=== PATIENT | male | born 1990 | race Caucasian/White ===

== ENCOUNTER 2023-05-29 11:17 | Emergency (ER) | payer MEDICAID ==
[~2023-05-29] VITALS: Ht 190.5 cm; Wt 86.2 kg
[2023-05-29 11:17] VITALS: BP_SYST 144; PULSE 114; RESP 19; TEMP 98.1; O2SAT 97
[~2023-05-29 11:17] MED LIST: NORCO5; [UNRECOGNIZED DRUG - CODE]
[2023-05-29] MEDS ORDERED: ACET325T PO (12:24)
[2023-05-29] MEDS ORDERED: CHLO473M5 PO (12:24)
[2023-05-29] MEDS ORDERED: AMOX500C2 PO (12:24)
[2023-05-29] MEDS ORDERED: IBUP-1969 PO (12:24)
[2023-05-29] MEDS ORDERED: KETOROLAC TROMETHAMINE 30 MG VIAL IVP ONE (12:30)
[2023-05-29] MEDS ORDERED: CLINDAMYCIN 300 MG/50 ML D5W 50 ML IV ONE (12:30)
[2023-05-29 13:37] VITALS: BP_SYST 138; PULSE 94; RESP 20; TEMP 98.1; O2SAT 98
== END 2023-05-29 13:37 | disposition home or self-care (01) ==
LOC: SED 11:17
DX: K04.7 Periapical abscess without sinus (principal); L03.211 Cellulitis of face; J45.909 Unspecified asthma, uncomplicated; F15.90 Other stimulant use, unspecified, uncomplicated; Z79.899 Other long term (current) drug therapy
CPT/HCPCS: 99284; 96365; 96375; J3490; J1885